=== PATIENT | male | born 1960 | race Caucasian/White ===

== ENCOUNTER 2016-06-22 19:21 | Emergency (ER) | payer BC ==
[~2016-06-22] VITALS: Ht 182.9 cm; Wt 97.6 kg
[~2016-06-22 19:21] MED LIST: BENA1TAB13 PO; DOCU100C59 PO
[2016-06-22 20:17] VITALS: Ht 182.9 cm; Wt 97.6 kg
[2016-06-22] MEDS ORDERED: HYD25 PO (21:48)
--- NOTE | 2016-06-22 21:51 | RADRPT ---
PROCEDURE: CT Brain without contrast. CLINICAL INDICATION: Headache. Intracranial hemorrhage. TECHNIQUE: A multiplanar CT of the brain was performed on a CT scanner utilizing axial imaging fro m the skull base through the vertex without IV contrast. The CTDIvol is 42.56 mGy and the DLP is 63 0.2 mGycm. One or more of the following dose reduction techniques were utilized: Automated exposur e control, adjustment of the mA and/or kV according to patient size, use of iterative reconstruction technique. COMPARISON: None FINDINGS: No evidence of intracranial hemorrhage or abnormal extra-axial fluid collection. The brain parenchyma is normal attenuation morphology with preservation of keith white differentiatio n and age appropriate size of the ventricles and subarachnoid spaces. The posterior fossa contents, brainstem, craniocervical junction, orbits, pituitary axis, paranasal sinuses, mastoid air cells, and calvarium are unremarkable. IMPRESSION: 1. No intracranial hemorrhage or acute intracranial abnormality. RPTAT:AAJJ Physician Neetu Date Time Electronically viewed and signed by Physician Neetu on 06/22/2016 21:51 KRISTIN/
--- NOTE | 2016-06-22 21:52 | ERD ---
ER Documentation Chief Complaint Date/Time DATE: 06/22/16 TIME: 21:49 Chief Complaint THROBBING OBRIEN WITH HTN WHEN TAKEN AT [facility] Card X 1 HR HPI 55-year-old man complaining of pressure in his head and neck as well as behind the eyes. He suspected hypertension. He took his blood pressure at [facility] and systolic was over 170 mmHg despite using his medications as prescribed. He states he has had similar episodes in the past and was worried so came here for evaluation. He denies slurred speech, no weakness in his arms or legs, no loss of consciousness or dizziness, no complaints of chest pain or shortness of breath. ROS All systems reviewed and are negative except as per history of present illness. Medications Home Meds Active Scripts Hydrochlorothiazide* (Hydrochlorothiazide*) 25 Mg Tab, 50 MG PO DAILY, #30 TAB Prov:ADELITA HAUSER MD 06/22/16 Reported Medications Docusate Sodium (Col-Rite) 100 Mg Capsule, 100 MG PO TID 04/23/13 Benazepril-Hydrochlorothiazide (Benazepril-Hydrochlorothiazide) 1 Each Tablet, 1 EACH PO DAILY 04/23/13 Allergies Allergies: Coded Allergies: No Known Drug Allergy (Verified Allergy, Mild, 04/23/13) PMhx/Soc Hypertension, obesity History of Surgery: Yes (COLON RESECTION;INCISIONAL HERNIA REPAIR) Anesthesia Reaction: No Hx Neurological Disorder: No Hx Respiratory Disorders: No Hx Cardiac Disorders: Yes (HTN) Hx Psychiatric Problems: No Hx Miscellaneous Medical Probl: No Hx Alcohol Use: Yes (VERY RARELY) Hx Substance Use: No Hx Tobacco Use: No Smoking Status: Never smoker FmHx Family History: No diabetes Physical Exam Vitals Vital Signs Date Time Temp Pulse Resp B/P Pulse Ox O2 Delivery O2 Flow Rate FiO2 06/22/16 20:17 97.6 77 20 171/92 99 Physical Exam GENERAL: Well-developed, well-nourished, well-hydrated, in no apparent distress , looks nontoxic in appearance HEENT: Moist mucous membranes, pink conjunctiva, no cervical spine tenderness or step-off deformities, no goiter, no jaundice or icterus, extraocular movements intact without pain. No submandibular induration, and no pharyngeal erythema NEURO: Alert and oriented 3, cranial nerves II through XII intact bilaterally, pupils equal round reactive to light, no focal deficits or facial asymmetry, sensation intact distally Strength 5/5 in upper and lower extremities bilaterally CARDIAC: Regular rate and rhythm, no murmurs rubs or gallops LUNGS: Clear bilaterally no wheezing crackles or stridor ABDOMEN: Soft nontender, no guarding, no rigidity, no rebound, no psoas sign no obturator sign. Normoactive bowel sounds SKIN: Warm and dry to touch, no abrasions, contusions, or hematomas, no lacerations, no ecchymosis, no target lesions, and without ulcers EXTREMITIES: No clubbing cyanosis or edema, calves are bilaterally symmetrical, no Homans sign, no popliteal cord sign. Distal pulses equal and bilateral PSYCH: Normal affect without agitation or irritability Results 24 hrs Current Medications Medications (Trade) Dose Ordered Sig/Jama Route PRN Reason Start Time Stop Time Status Last Admin Dose Admin Clonidine (Catapres) 0.1 mg ONCE ONCE PO 06/22/16 21:30 06/22/16 21:31 DC 06/22/16 21:11 Procedures/MDM CT scan of the brain was performed and was negative for acute bleed mass or shift. I treated the patient here with clonidine 0.1 mg p.o. with good effect. Patient's blood pressure was speeded and systolic fell over 20 points diastolic fell as well. He feels much better and appears well, I will discharge him with a prescription for hydrochlorothiazide to use in conjunction with his ALESSANDRO inhibitor. Reassurance was provided to the patient and he agreed to follow-up with his PMD. Differential diagnoses considered, included but not limited to acute coronary syndrome, pulmonary embolism, aortic dissection, abdominal aortic aneurysm, sepsis, stroke, meningitis, encephalitis, pneumonia, appendicitis, cholecystitis , bowel obstruction, pyelonephritis, nephrolithiasis, cystitis, as well as metabolic, hematologic, and electrolyte abnormalities. As well as abscess, cellulitis, fractures, and dislocations. Patient feels much better at this time, and vital signs are normal, symptoms have improved. I did give strict instructions to return to the ED if symptoms continue or worsen, patient will otherwise follow-up with primary care physician. Patient understood instructions and agreed to plan. Departure Diagnosis: Primary Impression: Hypertension Hypertension type: essential hypertension Qualified Code: I10 - Essential hypertension Condition: Good Patient Instructions: Hypertension, Established, Out Of Control Referrals: PANCHITO VIVAS (PCP) ADELITA HAUSER MD Jun 22, 2016 21:52
== END 2016-06-22 21:57 | disposition home or self-care (01) ==
LOC: FTE 19:21
DX: I10 Essential (primary) hypertension (principal); Z85.038 Personal history of other malignant neoplasm of large intestine
CPT/HCPCS: 70450

== ENCOUNTER 2016-07-23 20:16 | Emergency (ER) | payer BC ==
[~2016-07-23] VITALS: Ht 180.3 cm; Wt 118.0 kg
[~2016-07-23 20:16] MED LIST changes: +HYD25 PO
[2016-07-23 20:23] VITALS: Ht 180.3 cm; Wt 118.0 kg
[2016-07-23] MEDS ORDERED: SOD CHLORIDE 0.9% 1,000 ML IV STA (22:57)
[2016-07-23 23:26] LABS: ADD SCAN DIFF NO
[2016-07-23 23:28] LABS: BASOPHILS % 0.2 % (0.0-2.0); EOSINOPHILS % 0.1 % (0.0-7.0); HEMATOCRIT 48.8 % (42.0-52.0); LYMPHOCYTES # 1.3 10^3/ul (0.8-2.9); LYMPHOCYTES % 9.8 % (15.0-51.0); MEAN CORPUSCULAR HGB CONC 34.8 g/dl (32.0-37.0); MEAN CORPUSCULAR VOLUME 88.9 fl (82.0-101.0); MEAN PLATELET VOLUME 10.4 fl (7.4-10.4); MONOCYTE # 0.5 10^3/ul (0.3-0.9); MONOCYTES % 3.6 % (0.0-11.0); NEUTROPHIL # 11.2 10^3/ul (1.6-7.5); NEUTROPHILS % 85.8 % (39.0-77.0); PLATELET COUNT 264 10^3/UL (140-415); RED BLOOD COUNT 5.49 10^6/ul (4.70-6.10); RED CELL DISTRIBUTION WIDTH 12.8 % (11.5-14.5)
[2016-07-23 23:42] LABS: ALBUMIN 4.7 g/dl (3.3-4.9)
[2016-07-23 23:43] LABS: POTASSIUM 3.6 mmol/L (3.5-5.1)
[2016-07-23 23:45] LABS: BILIRUBIN,INDIRECT 0.4 mg/dl (0-1.1); BILIRUBIN,TOTAL 0.4 mg/dl (0.2-1.3); CREATININE 0.98 mg/dl (0.61-1.24)
[2016-07-23 23:46] LABS: ALBUMIN/GLOBULIN RATIO 1.51; TOTAL PROTEIN 7.8 g/dl (6.1-8.1)
[2016-07-23 23:47] VITALS: BP 146/89; PULSE 102; RESP 11
[2016-07-24 00:09] LABS: ADD UMIC YES; URINE BILIRUBIN (Dip) NEGATIVE (NEGATIVE); URINE BLOOD (Dip) TRACE (NEGATIVE); URINE COLOR YELLOW (YELLOW); URINE GLUCOSE (Dip) NEGATIVE (NEGATIVE); URINE KETONES (Dip) NEGATIVE (NEGATIVE); URINE LEUKOCYTE ESTERASE (Dip) NEGATIVE (NEGATIVE); URINE NITRITE (Dip) NEGATIVE (NEGATIVE); URINE TOTAL PROTEIN (Dip) NEGATIVE (NEGATIVE); URINE UROBILINOGEN (Dip) 0.2 E.U./dL (0.1-1.0)
[2016-07-24 00:27] LABS: MUCUS,URINE FEW; SQUAMOUS EPITHELIAL CELL,UR OCCASIONAL; URINE RBCS 0-2 /HPF (0)
--- NOTE | 2016-07-24 00:32 | RADRPT ---
PROCEDURE: CT ABDOMEN/PELVIS WITHOUT CONTRAST CLINICAL INDICATION: 55-year-old male with abdominal pain. The patient has a history of colon can cer treated with surgery. TECHNIQUE: The study was performed utilizing a GE LightSpeed VCT 64-slice CT scanner. Direct axia l sections were obtained through the abdomen and pelvis without the use of intravenous contrast mate rial. Sagittal and coronal reformations were obtained. One or more of the following dose reduction t echniques were utilized: automated exposure control, adjustment of the mA and/or kV according to pat ient's size or use of iterative reconstruction technique. [facility] CTD/vol = 23.3 mGy; Total Exam DLP = 1619.5 mGy-cm. COMPARISON: None. FINDINGS: There is minimal bibasilar subsegmental atelectasis. There is no evidence for significant pleural e ffusion. The liver has a normal size and contour without focal areas of abnormal density. No intrah epatic nor extrahepatic biliary ductal dilatation is seen. The gallbladder is partially collapsed wi thout evidence for calcified stones, significant wall thickening or pericholecystic fluid. The pancr eas is without areas of abnormal attenuation. The spleen is identified and has a normal size withou t abnormal density. The adrenal glands are unremarkable. The right kidney is without abnormal densit y, calculi or obstruction. There is a large mid left renal cyst measuring approximately 6.9 x 7.1 x 8.1 cm. No hydroureteronephrosis nor nephroureterolithiasis is evident. The urinary bladder is deco mpressed. The patient has had a prior midline incision with flaccidity of the abdominal wall but wit hout james hernia. Adherent loops of small bowel are noted along the incisional region. There has been a prior right hemicolectomy. There are diffusely dilated fluid-filled loops of small bowel and colon throughout without transition point. Mild retained stool is seen within the rectosigmoid reg ion. The prostate is not enlarged. There is no significant free fluid. The aortoiliac vessels are without aneurysmal dilatation. The osseous structures are intact. IMPRESSION: 1. Status post right hemicolectomy. 2. Diffusely dilated loops of small bowel and colon without evidence for gross bowel obstruction. This may represent an enteritis. Clinical correlation is necessary. 3. Large left renal cyst. .Maxime Ravi MD, MD Date Time Electronically viewed and signed by .Maxime Ravi MD, MD on 07/24/2016 00:32 .M/
[2016-07-24] MEDS ORDERED: POLY17PO6 PO (00:38)
--- NOTE | 2016-07-24 00:38 | ERD ---
ER Documentation Chief Complaint Date/Time DATE: 07/24/16 TIME: 00:35 Chief Complaint AP, nausea and vomiting with HTN and Hx of Colon Ca HPI This is a 45-year-old male who presents to the emergency room for evaluation of abdominal cramping, nausea, and constipation for the past 24 hours. This patient does have a history of colon cancer and came to the emergency room for evaluation of his symptoms. He denies any fevers. Denies any blood in his stool, he does state that he did take milk of magnesia with no bowel movement. The patient is passing gas and came to the emergency room for evaluation of his symptoms. He states that his cramping is all over his abdomen and denies any pain in abdomen ROS All systems reviewed and are negative except as per history of present illness. Medications Home Meds Active Scripts Hydrochlorothiazide* (Hydrochlorothiazide*) 25 Mg Tab, 50 MG PO DAILY, #30 TAB Prov:ADELITA HAUSER MD 06/22/16 Reported Medications Docusate Sodium (Col-Rite) 100 Mg Capsule, 100 MG PO TID 04/23/13 Benazepril-Hydrochlorothiazide (Benazepril-Hydrochlorothiazide) 1 Each Tablet, 1 EACH PO DAILY 04/23/13 Allergies Allergies: Coded Allergies: No Known Drug Allergy (Verified Allergy, Mild, 04/23/13) PMhx/Soc History of Surgery: Yes (COLON RESECTION;INCISIONAL HERNIA REPAIR) Anesthesia Reaction: No Hx Neurological Disorder: No Hx Respiratory Disorders: No Hx Cardiac Disorders: Yes (HTN) Hx Psychiatric Problems: No Hx Miscellaneous Medical Probl: No Hx Alcohol Use: Yes (VERY RARELY) Hx Substance Use: No Hx Tobacco Use: No Smoking Status: Never smoker Physical Exam Vitals Vital Signs Date Time Temp Pulse Resp B/P Pulse Ox O2 Delivery O2 Flow Rate FiO2 07/23/16 23:47 102 11 146/89 99 Room Air 07/23/16 20:23 98.8 101 20 164/93 96 Physical Exam INITIAL VITAL SIGNS: Reviewed by me GENERAL: The patient is well developed and appropriate for usual state of health in no apparent distress HEENT: Pupils equal, round, and reactive to light. EOMI. There is no scleral icterus. NECK: C-spine is soft and supple, there is no meningismus. There is no cervical lymphadenopathy. LUNGS: Clear to auscultation bilaterally. There are no rales, wheezes or rhonchi. HEART: Regular rate and rhythm, no murmurs, clicks, rubs or gallops. ABDOMEN: Soft, non-tender, non-distended. There are bowel sounds in all four quadrants. No rebound or guarding. EXTREMITIES: There is no peripheral cyanosis or edema. No focal swelling or erythema. NEUROLOGICAL: The patient moves all four extremities with 5/5 strength. Cranial nerves II - XII are intact. Normal gait. Alert and oriented SKIN: There is no apparent rash or petechiae. HEME/LYMPHATIC: There is no evidence of excessive bruising or lymphedema. PSYCHIATRIC: The patient does not appear anxious or depressed. Result Diagram: 07/23/16231807/23/162318 Results 24 hrs Laboratory Tests Test 07/23/16 23:19 07/23/16 23:40 Alanine Aminotransferase (ALT/SGPT) 50IU/L Albumin 4.7g/dl Albumin/Globulin Ratio 1.51 Alkaline Phosphatase 75IU/L Anion Gap 20 Aspartate Amino Transf (AST/SGOT) 38IU/L Basophils # 0.010^3/ul Basophils % 0.2% Blood Urea Nitrogen 24mg/dl Calcium Level 10.0mg/dl Carbon Dioxide Level 26mmol/L Chloride Level 103mmol/L Creatinine 0.98mg/dl Direct Bilirubin 0.00mg/dl Eosinophils # 0.010^3/ul Eosinophils % 0.1% Globulin 3.10g/dl Glucose Level 132mg/dl Hematocrit 48.8% Hemoglobin 17.0g/dl Indirect Bilirubin 0.4mg/dl Lipase 47U/L Lymphocytes # 1.310^3/ul Lymphocytes % 9.8% Mean Corpuscular Hemoglobin 31.0pg Mean Corpuscular Hemoglobin Concent 34.8g/dl Mean Corpuscular Volume 88.9fl Mean Platelet Volume 10.4fl Monocytes # 0.510^3/ul Monocytes % 3.6% Neutrophils # 11.210^3/ul Neutrophils % 85.8% Nucleated Red Blood Cells # 0.010^3/ul Nucleated Red Blood Cells % 0.0/100WBC Platelet Count 71958^3/UL Potassium Level 3.6mmol/L Red Blood Count 5.4910^6/ul Red Cell Distribution Width 12.8% Sodium Level 145mmol/L Total Bilirubin 0.4mg/dl Total Protein 7.8g/dl White Blood Count 13.010^3/ul Urine Bilirubin NEGATIVE Urine Clarity CLEAR Urine Color YELLOW Urine Glucose NEGATIVE% Urine Hemoglobin TRACE Urine Ketones NEGATIVE Urine Leukocyte Esterase NEGATIVE Urine Microscopic RBC 0-2/HPF Urine Microscopic WBC NONE SEEN/HPF Urine Mucus FEW Urine Nitrite NEGATIVE Urine Specific [place] >=1.030 Urine Squamous Epithelial Cells OCCASIONAL Urine Total Protein NEGATIVE Urine Urobilinogen 0.2 E.U./dL Urine pH 5.5 Current Medications Medications (Trade) Dose Ordered Sig/Jama Route PRN Reason Start Time Stop Time Status Last Admin Dose Admin Sodium Chloride (NS) 1,000 ml @ 1,000 mls/hr Q1H STAT IV 07/23/16 22:57 07/23/16 23:56 DC 07/23/16 23:24 Procedures/MDM CT abdomen pelvis without: 1. Status post right hemicolectomy. 2. Diffusely dilated loops of small bowel and colon without evidence for gross bowel obstruction. This may represent an enteritis. Clinical correlation is necessary. 3. Large left renal cyst. This 45-year-old male presents to the emergency room for evaluation of abdominal cramping, nausea, and constipation. This patient does have a history of constipation is taking milk of magnesia. The patient does also have a history of colon cancer. On my examination he did not have any specific tenderness on his abdomen. He did have bowel sounds in all [address] of the abdomen and pelvis was obtained which does show dilated loops of small bowel without any evidence of obstruction. The patient could possibly have enteritis and I explained this to the patient. Patient stated that he had a large bowel movement after he got back from CAT scan. This patient will be discharged home at this time with a prescription for MiraLAX at this time. Departure Diagnosis: Primary Impression: Abdominal cramps Additional Impression: Constipation Condition: Stable SHELTON ARCHER DO Jul 24, 2016 00:38
== END 2016-07-24 00:50 | disposition home or self-care (01) ==
LOC: E/R 20:16
DX: R10.9 Unspecified abdominal pain (principal); R40.2142 Coma scale, eyes open, spontaneous, at arrival to emergency department; K59.00 Constipation, unspecified; I10 Essential (primary) hypertension; R40.2252 Coma scale, best verbal response, oriented, at arrival to emergency department; R40.2362 Coma scale, best motor response, obeys commands, at arrival to emergency department; Z85.038 Personal history of other malignant neoplasm of large intestine
CPT/HCPCS: 74176; 80053; 81001; 81003; 83690; 85025; 99285; J7030